=== PATIENT | male | born 1995 | race Two or more races ===

== ENCOUNTER 2021-03-03 12:11 | Emergency (ER) | payer BC ==
[~2021-03-03] VITALS: Ht 170.2 cm; Wt 78.9 kg
[2021-03-03] MEDS ORDERED: ZYRTEC10 M3 PO (12:39)
== END 2021-03-03 14:24 | disposition home or self-care (01) ==
LOC: ER 12:11
DX: S80.01XA Contusion of right knee, initial encounter (principal); V19.88XA Pedal cyclist (driver) (passenger) injured in other specified transport accidents, initial encounter; Y93.55 Activity, bike riding; Y92.488 Other paved roadways as the place of occurrence of the external cause; Y99.8 Other external cause status